=== PATIENT | male | born 1975 | race Caucasian/White ===

== ENCOUNTER 2019-11-29 23:00 | Emergency (ER) | payer BC, MEDICAID ==
[2019-11-29 23:24] VITALS: BP 111/79; PULSE 94
[2019-11-29] MEDS ORDERED: Ketorolac 60 MG/2 ML SDV IM ONE (23:32)
--- NOTE | 2019-11-29 23:53 | EDM.PDOC ---
ED HPI GENERAL MEDICAL PROBLEM - General Chief Complaint: Upper Extremity Injury/Pain Stated Complaint: PAIN IN RT HAND,FELLL, CHILLS Time Seen by Provider: 11/29/19 23:30 Source of Information: Reports: Patient, Family, RN History Limitations: Reports: No Limitations - History of Present Illness INITIAL COMMENTS - FREE TEXT/NARRATIVE: 44 yo male daily heavy ETOH user presents with R hand pain with radiation towards his R elbow. He has chronic pain in that hand since surgery a few yrs ago. Dr. Milton is his provider. At home felt like he had chills today. No fever documented. Hates needles and is refusing to allow blood draw tonight. Was incontinent of stool at home before arrival, not diarrhea. Has been drinking tonight. Is here with his brother. Onset: Unknown/Unsure Duration: Chronic, Getting Worse Location: Reports: Upper Extremity, Right Quality: Reports: Ache Severity: Moderate Improves with: Reports: Medication Worsens with: Reports: Other (getting cold, or use of that hand.) Context: Reports: Other (See HPI) Associated Symptoms: Reports: Fever/Chills (no fever.). 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 below) (none) Right Hand Pain Score (Numeric/FACES): 10 - Related Data Allergies Allergy/AdvReac Type Severity Reaction Status Date / Time No Known Allergies Allergy Verified 11/29/19 23:18 Home Meds: Home Meds *Blood Pressure Med 0 mg PO DAILY 11/29/19 [History] Temazepam 30 mg PO BEDTIME 11/29/19 [History] lisinopriL [Lisinopril] 40 mg PO DAILY 11/29/19 [History] Past Medical History Cardiovascular History: Reports: Hypertension Respiratory History: Reports: Asthma Musculoskeletal History: Reports: Fracture Psychiatric History: Reports: Addiction, Anxiety Dermatologic History: Reports: Eczema - Infectious Disease History Infectious Disease History: Reports: Chicken Pox - Past Surgical History GI Surgical History: Reports: Appendectomy Musculoskeletal Surgical History: Reports: Other (See Below) Other Musculoskeletal Surgeries/Procedures:: wrist surgery Social & Family History - Family History Oncologic: Reports: Other (See Below) - Tobacco Use Smoking Status *Q: Never Smoker - Caffeine Use Caffeine Use: Reports: None - Alcohol Use Days Per Week of Alcohol Use: 7 Number of Drinks Per Day: 7 Total Drinks Per Week: 49 Date of Last Drink: 11/29/19 - Recreational Drug Use Recreational Drug Use: Yes Drug Use in Last 12 Months: Yes Recreational Drug Type: Reports: Marijuana/Hashish Recreational Drug Use Frequency: Daily Review of Systems - Review of Systems Review Of Systems: See Below Constitutional: Reports: No Symptoms Ears: Reports: No Symptoms Nose: Reports: No Symptoms Mouth/Throat: Reports: No Symptoms Respiratory: Reports: No Symptoms Cardiovascular: Reports: No Symptoms GI/Abdominal: Reports: Other (incontinent of stool) Genitourinary: Reports: No Symptoms Musculoskeletal: Reports: Hand Pain (R hand) Skin: Reports: No Symptoms ED EXAM, GENERAL - Physical Exam Exam: See Below Exam Limited By: No Limitations General Appearance: Alert, WD/WN, No Apparent Distress, Other (intoxicated) Eye Exam: Bilateral Eye: Normal Inspection Ears: Normal External Exam, Normal Canal, Hearing Grossly Normal, Normal TMs Ear Exam: Bilateral Ear: Auricle Normal, Canal Normal, TM normal Nose: Normal Inspection, No Blood Throat/Mouth: Normal Inspection, Normal Lips, Normal Oropharynx, Normal Voice, N o Airway Compromise Head: Atraumatic, Normocephalic Neck: Normal Inspection Respiratory/Chest: No Respiratory Distress, Lungs Clear, Normal Breath Sounds, No Accessory Muscle Use Cardiovascular: Regular Rate, Rhythm, No Edema GI/Abdominal: Normal Bowel Sounds, Soft, Non-Tender, No Distention Back Exam: Normal Inspection. No: CVA Tenderness (R), CVA Tenderness (L) Extremities: Normal Inspection, Normal Range of Motion, Non-Tender, No Pedal Edema Neurological: Alert, Oriented, CN II-XII Intact, Normal Cognition, No Motor/Sensory Deficits Psychiatric: Normal Affect, Normal Mood Skin Exam: Warm, Dry, Intact, Normal Color, No Rash Course - Vital Signs Last Recorded V/S: Last Vital Signs Temp 36.8 C 11/29/19 23:24 Pulse 94 11/29/19 23:24 Resp 17 11/29/19 23:24 BP 111/79 11/29/19 23:24 Pulse Ox 100 11/29/19 23:24 - Orders/Labs/Meds Orders: Active Orders 24 hr Category Date Time Status AMMONIA VENOUS [CHEM] Stat Lab 11/29/19 23:33 Ordered CBC W/O DIFF,HEMOGRAM [HEME] Stat Lab 11/29/19 23:32 Ordered COMPREHENSIVE METABOLIC PN,CMP [CHEM] Stat Lab 11/29/19 23:33 Ordered LACTIC ACID [CHEM] Stat Lab 11/29/19 23:33 Ordered UA W/MICROSCOPIC [URIN] Stat Lab 11/29/19 23:32 Ordered Meds: Medications Discontinued Medications Generic Name Dose Route Start Last Admin Trade Name Chase PRN Reason Stop Dose Admin Ketorolac Tromethamine 60 mg 11/29/19 23:32 11/29/19 23:43 Toradol IM 11/29/19 23:33 60 mg ONETIME ONE Administration - Re-Assessments/Exams Free Text/Narrative Re-Assessment/Exam: 11/29/19 23:57 Changed his mind, will allow a blood draw. Free Text/Narrative Re-Assessment/Exam: 11/30/19 00:02 Now is declining blood work, wants to go home. Departure - Departure Time of Disposition: 00:10 Disposition: Home, Self-Care 01 Condition: Fair Clinical Impression: Chronic pain of right hand - Discharge Information *PRESCRIPTION DRUG MONITORING PROGRAM REVIEWED*: No *COPY OF PRESCRIPTION DRUG MONITORING REPORT IN PATIENT MAKI: No Referrals: Trevor Milton Sr, MD [Primary Care Provider] - Forms: ED Department Discharge Additional Instructions: Use meloxicam as needed for hand pain, follow directions for use. See Dr. Milton for recheck as soon as possible. Sepsis Event Note (ED) - Evaluation Sepsis Screening Result: No Definite Risk - Focused Exam Vital Signs: Vital Signs Temp Pulse Resp BP Pulse Ox 11/29/19 23:24 36.8 C 94 17 111/79 100 11/29/19 23:23 36.8 C 94 17 111/79 100 - My Orders Last 24 Hours: My Active Orders 11/29/19 23:32 CBC W/O DIFF,HEMOGRAM [HEME] Stat UA W/MICROSCOPIC [URIN] Stat 11/29/19 23:33 AMMONIA VENOUS [CHEM] Stat COMPREHENSIVE METABOLIC PN,CMP [CHEM] Stat LACTIC ACID [CHEM] Stat - Assessment/Plan Last 24 Hours: My Active Orders 11/29/19 23:32 CBC W/O DIFF,HEMOGRAM [HEME] Stat UA W/MICROSCOPIC [URIN] Stat 11/29/19 23:33 AMMONIA VENOUS [CHEM] Stat COMPREHENSIVE METABOLIC PN,CMP [CHEM] Stat LACTIC ACID [CHEM] Stat
== END 2019-11-30 00:10 | disposition home or self-care (01) ==
LOC: JP.ED 23:00
DX: M79.641 Pain in right hand (principal); G89.29 Other chronic pain; J45.909 Unspecified asthma, uncomplicated; I10 Essential (primary) hypertension; Z79.899 Other long term (current) drug therapy
CPT/HCPCS: 96372; 99283; J1885

== ENCOUNTER 2019-12-04 23:05 | Emergency (ER) | payer MEDICAID ==
[2019-12-04 23:13] VITALS: BP 147/103
[2019-12-04 23:22] VITALS: PULSE 101
[2019-12-04] MEDS ORDERED: Ketorolac 60 MG/2 ML SDV IM ONE (23:22)
[2019-12-04] MEDS ORDERED: Sodium Chloride 0.9% 10 ML Syringe FLUSH PRN (23:30)
--- NOTE | 2019-12-04 23:34 | EDM.PDOC ---
ED HPI GENERAL MEDICAL PROBLEM - General Chief Complaint: Upper Extremity Injury/Pain Stated Complaint: R WRIST PAIN Time Seen by Provider: 12/04/19 23:20 Source of Information: Reports: Patient, Old Records, RN History Limitations: Reports: No Limitations - History of Present Illness INITIAL COMMENTS - FREE TEXT/NARRATIVE: 44 yo male presents with a complaint of R wrist pain in a wrist which has chronic pain from prior surgeries. He was seen a few days ago here for this and refused blood draws at that visit. Since that time he had an MRI per his primary that showed patchy marrow edema of the 3rd and 4th metacarpals. He has meloxicam at home for pain that was previously prescribed. He is a heavy ETOH user. Now the area of pain is somewhat reddened, this is new in the last 24 hrs or less. 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 Right Wrist Pain Score (Numeric/FACES): 5 - Related Data Allergies Allergy/AdvReac Type Severity Reaction Status Date / Time No Known Allergies Allergy Verified 12/04/19 23:09 Home Meds: Home Meds Temazepam 30 mg PO BEDTIME 11/29/19 [History] lisinopriL [Lisinopril] 40 mg PO DAILY 11/29/19 [History] Meloxicam 15 mg PO DAILY PRN #14 tablet 11/30/19 [Rx] Past Medical History Cardiovascular History: Reports: Hypertension Respiratory History: Reports: Asthma Musculoskeletal History: Reports: Fracture Psychiatric History: Reports: Addiction, Anxiety Dermatologic History: Reports: Eczema - Infectious Disease History Infectious Disease History: Reports: Chicken Pox - Past Surgical History GI Surgical History: Reports: Appendectomy Musculoskeletal Surgical History: Reports: Other (See Below) Other Musculoskeletal Surgeries/Procedures:: wrist surgery Social & Family History - Family History Oncologic: Reports: Other (See Below) - Tobacco Use Smoking Status *Q: Never Smoker - Caffeine Use Caffeine Use: Reports: None - Alcohol Use Days Per Week of Alcohol Use: 7 Number of Drinks Per Day: 8 Total Drinks Per Week: 56 - Recreational Drug Use Recreational Drug Use: No Review of Systems - Review of Systems Review Of Systems: See Below Constitutional: Reports: No Symptoms Musculoskeletal: Reports: Joint Pain (R wrist). Denies: Joint Swelling Skin: Reports: Erythema (to the anterior R wrist area. ). Denies: Bruising, Pruritis Neurological: Reports: No Symptoms ED EXAM, GENERAL - Physical Exam Exam: See Below Exam Limited By: No Limitations General Appearance: Alert, WD/WN, No Apparent Distress Extremities: No Pedal Edema, Limited Range of Motion (due to pain), Increased Warmth (slight increase in warmth over the reddened area to the anterior R wrist. ), Redness (anterior wrist, R). No: Normal Inspection, Normal Range of Motion, Non-Tender, Pedal Edema Neurological: Alert, Oriented, CN II-XII Intact, Normal Cognition, No Motor/Sensory Deficits Psychiatric: Normal Affect, Normal Mood Skin Exam: Warm, Dry, Intact, No Rash, Erythema (anterior R wrist only) Course - Vital Signs Last Recorded V/S: Last Vital Signs Temp 35.9 C L 12/04/19 23:14 Pulse 101 H 12/04/19 23:22 Resp 16 12/04/19 23:22 BP 147/103 H 12/04/19 23:14 Pulse Ox 97 12/04/19 23:22 - Orders/Labs/Meds Meds: Medications Discontinued Medications Generic Name Dose Route Start Last Admin Trade Name Chase PRN Reason Stop Dose Admin Ketorolac Tromethamine 60 mg 12/04/19 23:22 Toradol IM 12/04/19 23:23 ONETIME ONE Departure - Departure Time of Disposition: 23:37 Disposition: Home, Self-Care 01 Condition: Fair Clinical Impression: Wrist pain, right, Infection of right wrist - Discharge Information *PRESCRIPTION DRUG MONITORING PROGRAM REVIEWED*: No *COPY OF PRESCRIPTION DRUG MONITORING REPORT IN PATIENT MAKI: No Instructions: Arthritis, [id number] Referrals: Trevor Milton Sr, MD [Primary Care Provider] - Additional Instructions: Continue the meloxicam daily. Add acetaminophen 650 mg every 4-6 hrs for added relief. See your doctor as soon as possible for recheck. If you change your mind, come back for blood work and possible IV antibiotics. I am worried you have an infection in the bones of your wrist, we call this osteomyelitis. This condition requires prolonged treatment with IV antibiotics. The worse your infection gets the longer you will have to be treated if I am correct in my assessment. Sepsis Event Note (ED) - Evaluation Sepsis Screening Result: No Definite Risk - Focused Exam Vital Signs: Vital Signs Temp Pulse Resp BP Pulse Ox 12/04/19 23:22 101 H 16 97 12/04/19 23:14 35.9 C L 113 H 16 147/103 H 97 12/04/19 23:11 35.9 C L 113 H 16 147/103 H 97
== END 2019-12-04 23:45 | disposition home or self-care (01) ==
LOC: JP.ED 23:05
DX: L08.9 Local infection of the skin and subcutaneous tissue, unspecified (principal); I10 Essential (primary) hypertension; J45.909 Unspecified asthma, uncomplicated; Z79.899 Other long term (current) drug therapy
CPT/HCPCS: 96372; 99283; J1885

== ENCOUNTER 2021-10-11 05:44 | Day surgery (SDC) | payer MEDICAID ==
[2021-10-11] MEDS ORDERED: Nozin Nasal Sanitizer NASBOTH ONE (06:00)
[2021-10-11 06:41] LABS: ESTIMATED GFR 95 mL/min (>60)
[2021-10-11] MEDS ORDERED: Bupivacaine 0.5% 30 ML SDV ONE (06:55)
[2021-10-11] MEDS ORDERED: Lactated Ringers 1,000 ML IV SCH (07:00)
[2021-10-11] MEDS ORDERED: fentaNYL 100 MCG/2 ML SDV ONE (07:41)
[2021-10-11] MEDS ORDERED: Midazolam 1 MG/ML 2 ML SDV ONE ×2 (07:41→08:02)
[2021-10-11] MEDS ORDERED: Propofol 200 MG/20 ML SDV ONE ×2 (07:41→08:04)
[2021-10-11] MEDS ORDERED: Lidocaine 0.5% 50 ML SDV ONE (07:42)
[2021-10-11 09:20] VITALS: BP 122/73; PULSE 63
== END 2021-10-11 09:39 | disposition home or self-care (01) ==
LOC: JP.SDS 05:44
PROVIDERS: ATTEND Specialist
DX: G56.02 Carpal tunnel syndrome, left upper limb (principal); I10 Essential (primary) hypertension; F41.9 Anxiety disorder, unspecified; Z98.890 Other specified postprocedural states; Z90.49 Acquired absence of other specified parts of digestive tract
CPT/HCPCS: 36415; 64721; 80053; 85025; A9270; J2250; J2704; J3010; J3490; J7120